=== PATIENT | male | born 1995 | race Caucasian/White ===

== ENCOUNTER 2017-11-10 11:43 | Emergency (ER) | payer OTHER ==
[~2017-11-10] VITALS: Ht 180.3 cm; Wt 74.8 kg
[~2017-11-10 11:43] MED LIST: NORCO 5-325 TA1 EACH PO; PENICILLIN VK500 M1 PO
[2017-11-10 12:00] LABS: URINE BILIRUBIN NEGATIVE (Negative); URINE BLOOD NEGATIVE (Negative); URINE CLARITY CLEAR; URINE COLOR YELLOW; URINE GLUCOSE-RANDOM NEGATIVE (Negative); URINE KETONES NEGATIVE (Negative); URINE LEUKOCYTES-REFLEX NEGATIVE (Negative); URINE NITRITE-REFLEX NEGATIVE (Negative); URINE PROTEIN NEGATIVE (Negative); URINE UROBILINOGEN 0.2 E.U./dl (0.2-1.0)
[2017-11-10 12:21] VITALS: BP 142/93
== END 2017-11-10 12:22 | disposition home or self-care (01) ==
LOC: M.ERS 11:43
PROVIDERS: Nurse Practitioner Family
DX: R36.9 Urethral discharge, unspecified (principal); Z20.2 Contact with and (suspected) exposure to infections with a predominantly sexual mode of transmission; F17.210 Nicotine dependence, cigarettes, uncomplicated